=== PATIENT | male | born 1950 | race Caucasian/White ===

== ENCOUNTER 2020-12-06 15:57 | Emergency (ER) | payer OTHER ==
[~2020-12-06] VITALS: Ht 177.8 cm; Wt 80.9 kg
[2020-12-06 16:21] VITALS: BP 143/85
--- NOTE | 2020-12-06 16:39 | NUR ---
BL JANET LENS PLACED IN BOTH EYES, IRRIGATING WITH NS PER MD HUANG
[2020-12-06] MEDS ORDERED: proparacaine 0.5% ophthalmic drops 15ml EACHEYE ONE (17:00)
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
--- NOTE | 2020-12-06 17:41 | NUR ---
PA AT BEDSIDE DOING EXAM
[2020-12-06] MEDS ORDERED: erythromycin ophthalmic ointment 1gm tube RIGHTEYE ONE (17:55)
== END 2020-12-06 18:38 | disposition home or self-care (01) ==
LOC: ER 15:58
DX: T26.92XA Corrosion of left eye and adnexa, part unspecified, initial encounter (principal); T26.91XA Corrosion of right eye and adnexa, part unspecified, initial encounter; Y93.89 Activity, other specified; Y92.89 Other specified places as the place of occurrence of the external cause; Y99.8 Other external cause status
CPT/HCPCS: 99283